=== PATIENT | male | born 1980 | race Caucasian/White ===

== ENCOUNTER 2021-05-21 16:40 | Emergency (ER) | payer MEDICAID ==
[~2021-05-21] VITALS: Ht 188 cm; Wt 77.1 kg
--- NOTE | 2021-05-21 16:50 | NUR ---
PT WAS W/C ASSISTED FROM THE CAR. ER ADMITTING CALLED SAYING PATIENT FELL OUT OF W/C. PT FOUND ON GROUND. PT UNCOOPERATIVE AND HAVING BIZARRE BEHAVIOR. PT DOES NOT WANT TO GET UP FROM THE GROUND. 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 PT REFUSING TO BE TOUCHED. SECURITY CALLED TO [facility] FOR ASSISTANCE.
[2021-05-21 16:55] VITALS: BP 114/73
--- NOTE | 2021-05-21 16:58 | NUR ---
Geovani howe in [facility] - 05/21/21 at 1659 by VERO PT AMBULATED TO .
--- NOTE | 2021-05-21 17:00 | NUR ---
PT W/C ASSISTED TO LOBBY.
--- NOTE | 2021-05-21 17:20 | NUR ---
Security called again to ER lobby because pt refuses to stay in w/c. Pt yelling outside in ER lobby "I need to talk to God!" Pt has a friend outside with him who spoke to ER admitting stating "He is [id number]."
--- NOTE | 2021-05-21 18:28 | NUR ---
pt w/c assisted to bed 07.
[2021-05-21] MEDS ORDERED: ONDANSETRON 4 MG/2 ML VIAL IVP ONE (18:40)
[2021-05-21] MEDS ORDERED: NACL 0.9% 1,000 ML IV ONE (18:40)
[2021-05-21] MEDS ORDERED: MORPHINE SULFATE 4 MG/ML SYR IVP ONE (18:40)
--- NOTE | 2021-05-21 18:45 | NUR ---
Received patient laying on the floor of the lobby stating he had fallen out of the wheelchair, stating he falls a lot x 4 days, while patient was on the lobby floor he struck his head on the floor x 3 stating he has a concussion. Assisted to w/c, triaged. To bed 8 at 1842, assisted to bed. Patient is awake, alert, answering questions correctly, skin is w/d, resp even and unlabored, abd soft and non distended, abrasion to right lateral knee. Neuro eval WNL. Bed low and locked, siderails up, awaiting eval by practitioner.
[2021-05-21 19:03] LABS: BASOPHILS % (AUTO) 0.4 % (0.0-2.0); EOSINOPHILS % (AUTO) 0.8 % (0.0-4.0); HEMATOCRIT 36.3 % (36-52); HEMOGLOBIN 12.4 g/dL (12.0-18.0); LYMPHOCYTES # (AUTO) 1.3 K/uL (2.0-11.5); LYMPHOCYTES % (AUTO) 21.7 % (20.5-51.1); MEAN CORPUSCULAR HEMOGLOBIN 32 pg (27-31); MEAN CORPUSCULAR HGB CONC 34 g/dL (33-37); MEAN CORPUSCULAR VOLUME 94.6 fL (80-94); MONOCYTES # (AUTO) 0.4 K/uL (0.8-1.0); MONOCYTES % (AUTO) 6.7 % (1.7-9.3); NEUTROPHILS # (AUTO) 4.1 K/uL (1.8-7.7); NEUTROPHILS % (AUTO) 70.4 % (42.2-75.2); PLATELET COUNT (AUTO) 263 K/uL (140-450); RED BLOOD CELL COUNT(AUTO) 3.84 MIL/uL (4.20-6.10); RED CELL DISTRIBUTION WIDTH 12.6 % (11.6-13.7); WHITE BLOOD COUNT (AUTO) 5.8 K/uL (4.8-10.8)
--- NOTE | 2021-05-21 19:10 | NUR ---
TO CT VIA W/C
--- NOTE | 2021-05-21 19:18 | NUR ---
care endorsed to Lauar Durham RN
[2021-05-21 19:20] LABS: ALBUMIN 3.4 g/dL (3.4-5.0); ANION GAP 12.8 (8-16); CARBON DIOXIDE 28.8 mmol/L (21-32); POTASSIUM 3.6 mmol/L (3.5-5.1); TOTAL BILIRUBIN 0.8 mg/dL (0.0-1.0)
--- NOTE | 2021-05-21 19:24 | NUR ---
RETURNED FROM CT
[2021-05-21 19:36] LABS: ACETAMINOPHEN < 0.5 ug/ml (10-30); SALICYLATE < 2.8 mg/dL (2.8-20.0)
--- NOTE | 2021-05-21 19:50 | NUR ---
ASHELY SWAB OBTAINED AND SENT TO LAB. UNABLE TO PROVIDE UA AT THIS TIME
--- NOTE | 2021-05-21 20:00 | NUR ---
IS AWAKE AND ALERT. APPEARS TO HAVE RACING THOUGHTS. SPEAKS OF HEAD PAIN AND BANGING HIS OWN HEAD THEN SPEAKS OF NEEDING VITAMINS AND HAS MANY REQUESTS AND CONCERNS.
--- NOTE | 2021-05-21 21:04 | NUR ---
STILL UNABLE TO PROVIDE URINE, WATER GIVEN
--- NOTE | 2021-05-21 21:25 | NUR ---
PT SPEAKING WITH [facility]p[employer]MON[facility] AT THIS TIME.
--- NOTE | 2021-05-21 21:39 | NUR ---
SPEAKING WITH TELEPSYCH
--- NOTE | 2021-05-21 22:00 | NUR ---
SPOKE TO PATIENTS MOTHER : DARWIN BOND [phone]. HAS BEEN CONCERNED HER SON HAS BEEN HEARING VOICES AND BEHAVIOR HAS BEEN BIZARRE. STATES WAS DX WITH BIPOLAR AND BORDERLINE SCHIZOPHRENIA BUT HAS NOT RECEIVED ON GOING CARE. FRIEND : RENATE : [phone]. PTS FRIEND, RENATE HAS BEEN AT BEDSIDE
[2021-05-21] MEDS ORDERED: LORazepam 2 MG/ML VIAL IVP ONE (22:25)
[2021-05-21] MEDS ORDERED: KETOROLAC 15 MG/ML VIAL IVP ONE (22:25)
--- NOTE | 2021-05-21 23:15 | NUR ---
VOIDED PER URINAL. UDS SENT TO LAB
--- NOTE | 2021-05-21 23:23 | NUR ---
AMBULATED TO BR
[2021-05-21 23:30] LABS: BARBITURATE, URINE NEGATIVE ng/ml (NEG <=200); BENZODIAZEPINE, URINE NEGATIVE ng/mL (NEG <=200); CANNABINOID, URINE NEGATIVE ng/mL (NEG <=50); COCAINE, URINE NEGATIVE ng/mL (NEG <=300); OPIATE, URINE POSITIVE ng/mL (NEG <=2000); PHENCYCLIDINE SCREEN,URINE NEGATIVE ng/mL (NEG <=25)
--- NOTE | 2021-05-21 23:45 | NUR ---
AMBULATED TO BR, STATES HAD BM. BACK TO BED AND MADE COMFORTABLE
--- NOTE | 2021-05-22 02:00 | NUR ---
RESTING QUIETLY WITH EYES CLOSED. RESPIRATIONS REGULAR AND UNLABORED
--- NOTE | 2021-05-22 07:17 | NUR ---
Report and continuation of care received from JANIS Gaviria.
--- NOTE | 2021-05-22 07:30 | NUR ---
Patient with both eyes closed laying on right side in position of comfort. Bed locked in lowest position, side rails x 1.
--- NOTE | 2021-05-22 09:43 | NUR ---
Patient gown replaced, belongings list charted. Patient calm, cooperative at this time requesting urinal for void.
--- NOTE | 2021-05-22 09:45 | NUR ---
Spoke with Earnestine Weller (mother) who states patient has stayed [address] [facility] in [place] in January 2021. Mother expresses continued concern for patient to receive appropriate psychiatric care. Provided with status update at this time and will call back with any further updates.
--- NOTE | 2021-05-22 10:01 | NUR ---
Breakfast mealtray at bedside. Patient standing upright by bedside states he is stretching at this time.
--- NOTE | 2021-05-22 10:48 | NUR ---
1047---PSCHIATRIC DOCTOR CALLED AND WAS GIVEN UPDATE ON PATIENT. HE WILL CALL RONALDO RIVERA AND CLAUDIA AND COME EVALUATION PATIENT LATER.
--- NOTE | 2021-05-22 11:00 | NUR ---
Patient resting in position of comfort. Awake, sitting upright in bed. All pt needs met at this time. Water cup provided.
--- NOTE | 2021-05-22 12:30 | NUR ---
Patient resting in position of comfort with both eyes open. Patient completing meal at this time.
[2021-05-22] MEDS ORDERED: DIVALPROEX 500 MG TABEC PO ONE ×2 (12:40→12:55)
[2021-05-22] MEDS: DIVALPROEX 500 MG TABEC PO ONE ×2 (12:51→22:02)
--- NOTE | 2021-05-22 13:30 | NUR ---
Patient awake sitting upright, acting appropriately. Respirations even/unlabored.
--- NOTE | 2021-05-22 14:20 | NUR ---
Patient standing next to bed saying prayers. Asked patient regarding needs; states he is doing ok, states "I am stretching out my right knee to make sure it stays ok."
--- NOTE | 2021-05-22 15:40 | NUR ---
Patient kneeling on ground praying stating that his knee hurts. Patient assisted by EMT and staff back onto bed and side rails x2. All pt needs met.
--- NOTE | 2021-05-22 16:00 | NUR ---
Patient removed self from bed and ambulated to restroom for bowel movement. Patient states it takes him a long time to pass a bowel movement and straining causes him to become dizzy.
--- NOTE | 2021-05-22 16:10 | NUR ---
Security contacted to unlock bathroom door.
--- NOTE | 2021-05-22 16:16 | NUR ---
Security at ER bedside states he will be back with bathroom villalpando.
--- NOTE | 2021-05-22 16:34 | NUR ---
Patient back onto bed with side rails x 2. New non slip socks provided.
[2021-05-22] MEDS ORDERED: MORPHINE SULFATE 4 MG/ML SYR IVP ONE (16:55)
--- NOTE | 2021-05-22 19:24 | NUR ---
Report and transfer of care endorsed to JANIS Delgado.
--- NOTE | 2021-05-22 19:48 | NUR ---
PATIENT NOTED TO BE STANDING OUT OF BED AND TALKING TO SELF. UPON FUTHER ASSESSMENT OF THE PATIENT ABLE TO BE REORIENTED. PATEIENT CALM AND COOPERATIVE WITH ASSESSMENT. PATIENT STATES,"I'M STANDING FOR A BIT BECUASE I GET KNEE CRAMPING AND SITTING IN BED ALL DAY MAKES IT WORSE." PATIENT VSS.
[2021-05-22] MEDS ORDERED: diphenhydrAMINE 50 MG/ML VIAL IVP ONE (20:25)
[2021-05-22] MEDS ORDERED: diphenhydrAMINE 50 MG/ML VIAL ONE (20:26)
--- NOTE | 2021-05-22 21:00 | NUR ---
PATIENT AMBULATED TO RESTROOM WITH STEADY GAIT.
--- NOTE | 2021-05-22 21:18 | NUR ---
PATIENT GIVEN FOOD AND JUICE PER REQUEST. PATIENT VSS. PATIENT GIVEN NIGHT TIME MEDICATIONS ORDERED BY ERMD. PATIENT GIVEN EXTRA BLANKET FOR COMFORT MEASURES.
[2021-05-22] MEDS ORDERED: PROCHLORPERAZINE 10 MG/2 ML VIAL ONE (21:58)
[2021-05-22] MEDS ORDERED: PROCHLORPERAZINE 10 MG/2 ML VIAL IVP ONE (22:00)
--- NOTE | 2021-05-22 23:22 | NUR ---
Patient appears to be resting comfortably in bed. Vital Signs within normal limits. Respirations even and unlabored.
--- NOTE | 2021-05-23 | NUR ---
PATIENT RESTING IN BED WITH EYES CLOSED. EVER RISE AND FALL OF CHEST NOTED.
--- NOTE | 2021-05-23 03:46 | NUR ---
Patient appears to be resting comfortably in bed. Vital Signs within normal limits. Respirations even and unlabored.
--- NOTE | 2021-05-23 05:52 | NUR ---
Patient appears to be resting comfortably in bed. Patietn responsive to verbal stimuli, patient's Vital Signs within normal limits. Respirations even and unlabored. Skin is warm and dry to touch. Bed is locked and in lowest position.
--- NOTE | 2021-05-23 06:26 | NUR ---
[facility] CALLED INQUIRING IF PT STILL NEEDED PLACEMENT
--- NOTE | 2021-05-23 06:50 | NUR ---
PATIENT GIVEN WATER PER REQUEST. PATIENT RESTING COMFORTABLY IN BED. RESPIRATIONS ARE EVEN AND UNLABORED. SKIN IS WARM AND DRY TO TOUCH. PATIENT VSS.
--- NOTE | 2021-05-23 07:24 | NUR ---
RECIEVED REPORT FROM JANIS RUBI. TRANSFER OF CARE RECIEVED
--- NOTE | 2021-05-23 07:41 | NUR ---
PT CURRENTLY RESTING BEDSIDE WITH LIGHTS OFF. BED IN LOWEST POSITION WITH SIDERAILS X2 UP. BED IN LOCKED POSITION. WILL CONTINUE TO MONTIOR
--- NOTE | 2021-05-23 09:35 | NUR ---
Pt currently resting with eyes closed and lights off. Bed in lowest position with siderail x2 up and bed locked. Vital signs stable. Will continue to monitor
--- NOTE | 2021-05-23 10:28 | NUR ---
Dr. Brown from psychiatry bedside evaluating pt
--- NOTE | 2021-05-23 11:24 | NUR ---
Pt just finished breakfast and is now resting with eyes closed. Bed in lowest position with siderail x2 up. Bed locked. Will continue to monitor
--- NOTE | 2021-05-23 12:15 | NUR ---
PT AMBULATED TO RESTROOM. GAIT STEADY.
--- NOTE | 2021-05-23 12:26 | NUR ---
PT AMBULATED TO BED 7. GAIT STEADY. WILL CONTINUE TO MONITOR
--- NOTE | 2021-05-23 13:40 | NUR ---
PT AMBULATED TO RESTROOM. GAIT STEADY
--- NOTE | 2021-05-23 14:03 | NUR ---
PT AMBUALTED TO BED 7. GAIT STEADY, WILL CONTINUE TO MONITOR
--- NOTE | 2021-05-23 14:25 | NUR ---
Continuing to monitor for placement. Intake was faxed to the following facilities [facility]/ [facility]/ [facility]/ [facility]/ [facility] Patient remains on wait list. No beds available at this time. Will keep facility updated with any information regarding placement.
--- NOTE | 2021-05-23 15:01 | NUR ---
PT RESTING BEDSIDE CURRENTLY WITH EYES CLOSED. CHEST RISE AND FALL NOTED. BREATHING UNLABORED. BED IN LOWEST POSITION WITH SIDERAIL X2 UP. BED LOCKED. WILL CONTINUE TO MONITOR.
--- NOTE | 2021-05-23 15:08 | NUR ---
DR. MOREIRA FROM PSYCHIATRY EVALUATING PT BEDSIDE
--- NOTE | 2021-05-23 15:17 | NUR ---
DR. MOREIRA EVALUATING PT
[2021-05-23 16:26] VITALS: BP 127/68
--- NOTE | 2021-05-23 16:26 | NUR ---
Patient discharged with v/s stable. Written and verbal after care instructions given and explained. Patient verbalized understanding. Ambulatory with steady gait. All questions addressed prior to discharge. Advised to follow up with PMD. MENTAL HEALTH PACKET GIVEN TO PATIENT UPON DISCHARGE Addendum: 05/23/21 at 1735 by [email or web address] MENTAL HEALTH RESOURCE PACKET GIVEN TO PATIENT UPON DISCHARGE
== END 2021-05-23 16:26 | disposition home or self-care (01) ==
LOC: MED 16:40
DX: S09.8XXA Other specified injuries of head, initial encounter (principal); Z20.822 Contact with and (suspected) exposure to COVID-19; F31.9 Bipolar disorder, unspecified; Z88.0 Allergy status to penicillin; W01.0XXA Fall on same level from slipping, tripping and stumbling without subsequent striking against object, initial encounter; Y93.89 Activity, other specified; Y92.89 Other specified places as the place of occurrence of the external cause; Y99.8 Other external cause status
CPT/HCPCS: 36415; 70450; 73560; 80053; 80305; 85025; 87426; 96361; 96374; 96375; 96376; 99285; G0480; G0482; J0780; J1200; J1885; J2060; J2270; J2405; J7030; U0003